=== PATIENT | female | born 1945 | race Native Hawaiian/Other Pacific Islander ===

== ENCOUNTER 2017-12-08 08:08 | Outpatient (CLI) | payer OTHER ==
[~2017-12-08 08:08] MED LIST: LANTUS SOLOSTAR SC; LISI20TA24 PO; LOVA20TA PO; METF500T PO; NOVOLOG MIX 70/30 SC
[2017-12-08] MEDS ORDERED: ASPIRIN LOW81 MG PO (08:41)
[2017-12-08] MEDS ORDERED: EQ STOOL SOFTE100 MG PO (08:42)
== END 2017-12-08 08:22 | disposition short-term general hospital (02) ==
LOC: AMB 08:08
DX: E10.65 Type 1 diabetes mellitus with hyperglycemia (principal); R42 Dizziness and giddiness; R11.0 Nausea; R53.1 Weakness
CPT/HCPCS: A0425; A0427

== ENCOUNTER 2017-12-08 08:22 | Emergency (ER) | payer OTHER ==
[~2017-12-08] VITALS: Ht 160 cm; Wt 68.5 kg
[2017-12-08 08:22] VITALS: TEMP 98
[2017-12-08] MEDS ORDERED: ASPIRIN LOW81 MG PO (08:41)
[2017-12-08] MEDS ORDERED: EQ STOOL SOFTE100 MG PO (08:42)
[2017-12-08 08:52] LABS: PLATELET COUNT 383 K/uL (152-353)
[2017-12-08 09:00] LABS: POTASSIUM 3.8 mmol/L (3.6-5.2)
[2017-12-08 10:28] VITALS: BP 150/72
== END 2017-12-08 10:28 | disposition home or self-care (01) ==
LOC: ED 08:22
DX: E87.1 Hypo-osmolality and hyponatremia (principal)
CPT/HCPCS: 80053; 81000; 85027; 99283

== ENCOUNTER 2018-12-24 09:00 | Outpatient (CLI) | payer OTHER ==
[~2018-12-24] VITALS: Ht 160 cm; Wt 71.2 kg
[~2018-12-24 09:00] MED LIST changes: +ASPIRIN LOW81 MG PO; +EQ STOOL SOFTE100 MG PO
[2018-12-24 09:10] VITALS: BP 151/67; TEMP 98.5
== END 2018-12-24 10:16 | disposition home or self-care (01) ==
LOC: INF 09:00
DX: M81.0 Age-related osteoporosis without current pathological fracture (principal)
CPT/HCPCS: 36415; 82310; 96372

== ENCOUNTER 2019-02-05 06:49 | Emergency (ER) | payer OTHER ==
[~2019-02-05] VITALS: Ht 160 cm; Wt 71.2 kg
[2019-02-05 06:50] VITALS: BP 187/78; TEMP 97.7
[2019-02-05 07:18] LABS: PLATELET COUNT 341 K/uL (152-353)
[2019-02-05 07:21] LABS: POTASSIUM 4.6 mmol/L (3.6-5.2)
[2019-02-05 07:34] LABS: PARTIAL THROMBOPLASTIN TIME 22.7 SECONDS (24.5-33.6)
== END 2019-02-05 08:25 | disposition home or self-care (01) ==
LOC: ED 06:49
PROVIDERS: Hospitalist
DX: M54.5 Low back pain (principal); M25.512 Pain in left shoulder; M25.552 Pain in left hip; W18.39XA Other fall on same level, initial encounter; Y92.098 Other place in other non-institutional residence as the place of occurrence of the external cause
CPT/HCPCS: 80048; 85027; 85610; 85730; 93005; 96374; 96375; 99284; J1885; J2405

== ENCOUNTER 2019-02-19 10:02 | Outpatient (CLI) | payer OTHER | END 2019-02-19 22:54 | disposition home or self-care (01) | LOC: CT 10:02 | DX: R42 Dizziness and giddiness (principal) ==

== ENCOUNTER 2020-11-02 10:53 | Outpatient (CLI) | payer OTHER | END 2020-11-02 22:00 | disposition home or self-care (01) | LOC: US 10:53 | PROVIDERS: ATTEND Internal Medicine | DX: M79.605 Pain in left leg (principal) ==